=== PATIENT | male | born 1960 | race Caucasian/White ===

== ENCOUNTER 2018-07-15 21:11 | Emergency (ER) | payer BC, OTHER ==
[2018-07-15 21:36] VITALS: BP 125/86
[2018-07-15] MEDS ORDERED: Doxycycline 100 MG Cap PO ONE (21:58)
[2018-07-15] MEDS ORDERED: Bacitracin Oint 1 GM U/D Packet TOP ONE (21:58)
--- NOTE | 2018-07-15 21:59 | EDM.PDOC ---
ED HPI GENERAL MEDICAL PROBLEM - General Chief Complaint: Bite:Animal, Insect Stated Complaint: TICK ON BACK Time Seen by Provider: 07/15/18 21:40 Source of Information: Reports: Patient, Family History Limitations: Reports: No Limitations - History of Present Illness INITIAL COMMENTS - FREE TEXT/NARRATIVE: 58-year-old male the tick off his back earlier this evening and is concerned there is still some foreign debris in the skin. He claims it was a deer tick. Onset: Today Location: Reports: Back Associated Symptoms: Reports: No Other Symptoms - Related Data Allergies Allergy/AdvReac Type Severity Reaction Status Date / Time No Known Allergies Allergy Verified 07/15/18 21:41 Home Meds: Home Meds NK [No Known Home Meds] 09/05/14 [History] Past Medical History - Past Health History Medical/Surgical History: Denies Medical/Surgical History Social & Family History - Tobacco Use Smoking Status *Q: Never Smoker - Caffeine Use Caffeine Use: Reports: Tea - Recreational Drug Use Recreational Drug Use: No ED ROS GENERAL - Review of Systems Review Of Systems: See Below Constitutional: Denies: Fever, Chills Respiratory: Reports: No Symptoms GI/Abdominal: Reports: No Symptoms Skin: Reports: Other (Some erythema around the bite) ED EXAM, ANIMAL BITE - Physical Exam Exam: See Below Exam Limited By: No Limitations General Appearance: Alert, No Apparent Distress Respiratory/Chest: No Respiratory Distress Skin Exam: Other (Small puncture wound with surrounding erythema on the back just medial to the left scapula. There does appear to be a very small black spot which may be a remnant of the tick in the skin.) Course - Vital Signs Last Recorded V/S: Last Vital Signs Temp 96.8 F 07/15/18 21:43 Pulse 71 07/15/18 21:43 Resp 16 07/15/18 21:43 BP 125/86 07/15/18 21:43 Pulse Ox 97 07/15/18 21:43 - Orders/Labs/Meds Meds: Medications Discontinued Medications Generic Name Dose Route Start Last Admin Trade Name Freq PRN Reason Stop Dose Admin Bacitracin 1 dose 07/15/18 21:58 07/15/18 22:02 Bacitracin Oint 1 Gm TOP 07/15/18 21:59 1 dose ONETIME ONE Administration Doxycycline Hyclate 200 mg 07/15/18 21:58 07/15/18 22:02 Vibramycin PO 07/15/18 21:59 200 mg ONETIME ONE Administration - Re-Assessments/Exams Free Text/Narrative Re-Assessment/Exam: 07/16/18 00:13 Patient was very concerned about the retained piece of taken his skin, so after sterilizing with alcohol this was removed with the tip of an 18-gauge needle. A small amount of bacitracin was applied and a bandage, and the patient was given one 200 mg doxycycline oral dose. He will recheck or return if difficulties or concerns. Departure - Departure Time of Disposition: 22:09 Disposition: Home, Self-Care 01 Condition: Good Clinical Impression: Tick bite of back Qualifiers: Encounter type: initial encounter Qualified Code(s): S30.860A - Insect bite ( nonvenomous) of lower back and pelvis, initial encounter - Discharge Information Instructions: Tick Bite Information, Adult, [id number] Referrals: PCP,None [Primary Care Provider] - Forms: ED Department Discharge Care Plan Goals: Keep wound clean while healing, and return if problems such as significant increase in erythema, fever or joint pains.
== END 2018-07-15 22:09 | disposition home or self-care (01) ==
LOC: JP.ED 21:11
DX: S30.860A Insect bite (nonvenomous) of lower back and pelvis, initial encounter (principal); W57.XXXA Bitten or stung by nonvenomous insect and other nonvenomous arthropods, initial encounter
CPT/HCPCS: 99282; A9270

== ENCOUNTER 2024-08-12 18:59 | Emergency (ER) | payer MEDICARE, OTHER ==
[2024-08-12 19:57] VITALS: BP 126/66; PULSE 72
== END 2024-08-12 20:22 | disposition home or self-care (01) ==
LOC: JP.ED 18:59
DX: S30.860A Insect bite (nonvenomous) of lower back and pelvis, initial encounter (principal); A69.20 Lyme disease, unspecified; W57.XXXA Bitten or stung by nonvenomous insect and other nonvenomous arthropods, initial encounter; Y93.89 Activity, other specified
CPT/HCPCS: 99282; 99283